=== PATIENT | male | born 1975 | race Hispanic/Latino ===

== ENCOUNTER 2022-03-28 16:40 | Inpatient (IN) | payer MEDICAID ==
[~2022-03-28] VITALS: Ht 167.6 cm; Wt 60.1 kg
[2022-03-28 17:22] LABS: BASOPHILS % (AUTO) 0.8 % (0.0-5.0); HEMATOCRIT 42.6 % (42-54); LYMPHOCYTES % (AUTO) 18.1 % (21.0-51.0); MEAN CORPUSCULAR HEMOGLOBIN 32.5 pg (27.0-33.0); MEAN CORPUSCULAR HGB CONC 35.4 g/dL (32.0-36.0); MEAN CORPUSCULAR VOLUME 91.8 fL (79-99); MONOCYTES % (AUTO) 9.9 % (3.0-13.0); NEUTROPHILS % (AUTO) 66.9 % (40.0-77.0); PLATELET COUNT (AUTO) 196 K/uL (130-400); RED BLOOD CELL COUNT(AUTO) 4.64 MIL/uL (4.50-6.20); WHITE BLOOD COUNT (AUTO) 9.3 K/uL (4.8-10.8)
[2022-03-28 17:43] LABS: CREATININE 0.8 mg/dL (0.5-1.5); POTASSIUM 3.6 mmol/L (3.5-5.1)
[2022-03-28 17:51] LABS: ALBUMIN 3.2 g/dL (3.5-5.0)
[2022-03-28] MEDS ORDERED: IOHEXOL 350 MG/ML 100ML INFUS..BTL IV ONE (18:04)
[2022-03-28] MEDS ORDERED: ACETAMINOPHEN 325 MG TAB PO PRN (21:00)
[2022-03-28] MEDS ORDERED: MORPHINE 2 MG SYG IV PRN (21:00)
[2022-03-28] MEDS: LACTATED RINGERS 1000ML 1,000 ML IV SCH (21:24)
[2022-03-28] MEDS: FAMOTIDINE 20MG VIAL IV SCH (21:25)
[2022-03-28 21:27] LABS: APPEARANCE,URINE CLEAR (CLEAR); BILIRUBIN,URINE NEGATIVE (NEGATIVE); COLOR,URINE COLORLESS (YELLOW); GLUCOSE, URINE (UA) NEGATIVE (NEGATIVE); KETONES,URINE NEGATIVE (NEGATIVE); LEUKOCYTE ESTERASE ,URINE NEGATIVE Leu/uL (NEGATIVE); NITRATE,URINE NEGATIVE (NEGATIVE); OCCULT BLOOD,URINE NEGATIVE (NEGATIVE); PH,URINE 6.5 (5.0-8.0); PROTEIN,URINE NEGATIVE (NEGATIVE); UROBILINOGEN,URINE 0.2 mg/dL (0.2-1.0)
[2022-03-28 23:40] VITALS: BP 125/76
[2022-03-29] MEDS ORDERED: NICOTINE 21 MG/ 24 HR PATCH TD SCH
[2022-03-29 04:26] VITALS: BP 125/76
[2022-03-29 05:29] LABS: EOSINOPHILS % (AUTO) 6.7 % (0.0-8.0); HEMATOCRIT 43.4 % (42-54); LYMPHOCYTES % (AUTO) 20.5 % (21.0-51.0); MEAN CORPUSCULAR HEMOGLOBIN 32.6 pg (27.0-33.0); MEAN CORPUSCULAR HGB CONC 35.5 g/dL (32.0-36.0); MEAN CORPUSCULAR VOLUME 91.8 fL (79-99); MONOCYTES % (AUTO) 12.5 % (3.0-13.0); PLATELET COUNT (AUTO) 196 K/uL (130-400); RED BLOOD CELL COUNT(AUTO) 4.73 MIL/uL (4.50-6.20); WHITE BLOOD COUNT (AUTO) 7.1 K/uL (4.8-10.8)
[2022-03-29 05:42] LABS: INR 0.97 (0.85-1.15); PROTHROMBIN TIME 10.6 SEC (9.6-11.6)
[2022-03-29 05:43] LABS: PARTIAL THROMBOPLASTIN TIME 27.6 SEC (26.3-35.5)
[2022-03-29 06:14] LABS: CREATININE 0.8 mg/dL (0.5-1.5); MAGNESIUM 1.9 mg/dL (1.80-2.40); PHOSPHORUS 3.7 mg/dL (2.5-4.9); POTASSIUM 3.8 mmol/L (3.5-5.1)
[2022-03-29 08:00] VITALS: BP 119/68
[2022-03-29] MEDS: NICOTINE 21 MG/ 24 HR PATCH TD SCH (09:23)
[2022-03-29] MEDS: FAMOTIDINE 20MG VIAL IV SCH ×2 (09:23→19:58)
[2022-03-29 11:00] VITALS: BP 128/67
[2022-03-29] MEDS: LACTATED RINGERS 1000ML 1,000 ML IV SCH (13:40)
[2022-03-29 16:00] VITALS: BP 126/90
[2022-03-29 20:00] VITALS: BP 117/71
[2022-03-30] VITALS: BP 128/72
[2022-03-30 04:00] VITALS: BP 107/79
[2022-03-30 05:13] LABS: HEMATOCRIT 43.4 % (42-54); MEAN CORPUSCULAR HEMOGLOBIN 32.2 pg (27.0-33.0); MEAN CORPUSCULAR VOLUME 91.9 fL (79-99); RED BLOOD CELL COUNT(AUTO) 4.72 MIL/uL (4.50-6.20); RED CELL DISTRIBUTION WIDTH 11.9 % (11.0-15.5); WHITE BLOOD COUNT (AUTO) 7.9 K/uL (4.8-10.8)
[2022-03-30 05:25] LABS: CREATININE 0.9 mg/dL (0.5-1.5); POTASSIUM 3.9 mmol/L (3.5-5.1)
[2022-03-30] MEDS: LACTATED RINGERS 1000ML 1,000 ML IV SCH (05:44)
[2022-03-30 08:00] VITALS: BP 125/74
[2022-03-30] MEDS: FAMOTIDINE 20MG VIAL IV SCH ×2 (10:50→20:21)
[2022-03-30] MEDS: NICOTINE 21 MG/ 24 HR PATCH TD SCH (10:50)
[2022-03-30 12:00] VITALS: BP 124/68
[2022-03-30 16:00] VITALS: BP 115/81
[2022-03-30 20:00] VITALS: BP 127/50
[2022-03-31] VITALS (26 sets, daily range): BP systolic 100–151; BP diastolic 60–82
[2022-03-31] MEDS: LACTATED RINGERS 1000ML 1,000 ML IV SCH ×2 (04:55→18:00)
[2022-03-31] MEDS ORDERED: ESMOLOL HCL 10 MG/ML 10 ML VIAL ONE (05:03)
[2022-03-31 05:05] LABS: HEMATOCRIT 42.3 % (42-54); MEAN CORPUSCULAR HEMOGLOBIN 32.3 pg (27.0-33.0); MEAN CORPUSCULAR HGB CONC 35.5 g/dL (32.0-36.0); RED BLOOD CELL COUNT(AUTO) 4.65 MIL/uL (4.50-6.20); RED CELL DISTRIBUTION WIDTH 11.8 % (11.0-15.5); WHITE BLOOD COUNT (AUTO) 7.1 K/uL (4.8-10.8)
[2022-03-31 05:20] LABS: POTASSIUM 4.8 mmol/L (3.5-5.1)
[2022-03-31] MEDS ORDERED: EPINEPHRINE 1 MG/ML 30ML VIAL IJ ONE (05:30)
[2022-03-31] MEDS ORDERED: MIDAZOLAM HCL 1 MG/ML 2ML VIAL ONE (06:56)
[2022-03-31] MEDS ORDERED: ROCURONIUM 10MG/1ML SYR 10 MG/ML ML ONE (06:57)
[2022-03-31] MEDS ORDERED: FENTANYL CITRATE PF 50 MCG/1 ML 5ML AMP IV ONE (06:57)
[2022-03-31] MEDS ORDERED: PROPOFOL 10 MG/ML 20ML VIAL IV ONE (06:57)
[2022-03-31] MEDS ORDERED: ONDANSETRON 4MG INJ ONE (07:12)
[2022-03-31] MEDS ORDERED: IPRATROPIUM/ALBUTEROL SULFATE 3 ML SOLUTION IH ONE ×2 (08:14→08:30)
[2022-03-31] MEDS ORDERED: MEPERIDINE-PF 25 MG/ML SYG ONE (08:39)
[2022-03-31] MEDS: ONDANSETRON 4MG INJ IV PRN (08:42)
[2022-03-31] MEDS: FAMOTIDINE 20MG VIAL IV SCH ×2 (11:54→21:06)
[2022-03-31] MEDS: NICOTINE 21 MG/ 24 HR PATCH TD SCH (11:55)
[2022-03-31] MEDS: MORPHINE 4 MG SYG IV PRN ×2 (11:55→17:57)
[2022-03-31] MEDS ORDERED: VIT K IV SCH ×3 (19:30)
[2022-03-31] MEDS ORDERED: PEDI NO 1 IV SCH ×3 (19:30)
[2022-03-31] MEDS ORDERED: [UNRECOGNIZED DRUG - OTHER] IV SCH ×3 (19:30)
[2022-03-31] MEDS ORDERED: MULTITRACE IV SCH ×3 (19:30)
[2022-03-31] MEDS ORDERED: MVI IV SCH ×3 (19:30)
[2022-04-01] VITALS (7 sets, daily range): BP systolic 102–144; BP diastolic 52–76
[2022-04-01] MEDS: LACTATED RINGERS 1000ML 1,000 ML IV SCH (03:15)
[2022-04-01 06:05] LABS: HEMATOCRIT 42.8 % (42-54); MEAN CORPUSCULAR HEMOGLOBIN 31.9 pg (27.0-33.0); MEAN CORPUSCULAR HGB CONC 34.3 g/dL (32.0-36.0); MEAN CORPUSCULAR VOLUME 92.8 fL (79-99); RED BLOOD CELL COUNT(AUTO) 4.61 MIL/uL (4.50-6.20); RED CELL DISTRIBUTION WIDTH 11.9 % (11.0-15.5); WHITE BLOOD COUNT (AUTO) 7.4 K/uL (4.8-10.8)
[2022-04-01 06:18] LABS: CREATININE 0.9 mg/dL (0.5-1.5); POTASSIUM 3.6 mmol/L (3.5-5.1)
[2022-04-01 06:49] LABS: MAGNESIUM 1.7 mg/dL (1.80-2.40); PHOSPHORUS 3.7 mg/dL (2.5-4.9); TOTAL PROTEIN, SERUM 6.7 g/dL (6.0-8.3)
[2022-04-01] MEDS ORDERED: MAGNESIUM 2GM PREMIX 50ML 50 ML IV SCH (08:30)
[2022-04-01] MEDS: NICOTINE 21 MG/ 24 HR PATCH TD SCH (09:01)
[2022-04-01] MEDS: FAMOTIDINE 20MG VIAL IV SCH ×2 (09:01→19:49)
[2022-04-01] MEDS ORDERED: M.V.I. IV [ADULT] 10 ML, MULTITRACE-4 ADULT 10ML VIAL 3 ML in CLINIMIX-E4.25%AA/D5+LYT2... IV SCH (10:00)
[2022-04-01] MEDS: MORPHINE 4 MG SYG IV PRN (10:43)
[2022-04-01] MEDS ORDERED: PHARMACY COMMUNICATION MISC SCH (12:00)
[2022-04-01] MEDS ORDERED: PHENOL 177 ML BOTTLE PO PRN (12:00)
[2022-04-01] MEDS: CEFTRIAXONE 1G VIAL IVP SCH (19:49)
[2022-04-02] VITALS (17 sets, daily range): BP systolic 97–142; BP diastolic 52–84
[2022-04-02] MEDS: MORPHINE 4 MG SYG IV PRN ×3 (00:07→17:41)
[2022-04-02] MEDS: LACTATED RINGERS 1000ML 1,000 ML IV SCH ×2 (01:00→10:59)
[2022-04-02] MEDS ORDERED: PROPOFOL 10 MG/ML 20ML VIAL IV ONE (06:49)
[2022-04-02] MEDS ORDERED: CEFAZOLIN SODIUM 1 GM VIAL ONE (07:23)
[2022-04-02] MEDS: FAMOTIDINE 20MG VIAL IV SCH ×2 (10:58→20:59)
[2022-04-02] MEDS: CEFTRIAXONE 1G VIAL IVP SCH ×2 (10:58→21:00)
[2022-04-02] MEDS: NICOTINE 21 MG/ 24 HR PATCH TD SCH (10:58)
[2022-04-02] MEDS: ONDANSETRON 4MG INJ IV PRN (11:47)
[2022-04-02] MEDS ORDERED: CLINIMIX-E4.25%AA/D5+LYT2000ML 2,000 ML IV SCH (12:30)
[2022-04-02] MEDS: KETOROLAC 15MG/ML VIAL (15MG/ML) IV PRN (21:00)
[2022-04-03] VITALS: BP 114/64
[2022-04-03 04:00] VITALS: BP 122/71
[2022-04-03 07:30] VITALS: BP 133/81
[2022-04-03] MEDS ORDERED: FAT EMULSIONS 20% 250ML 250 ML IV SCH (09:00)
[2022-04-03] MEDS: CEFTRIAXONE 1G VIAL IVP SCH ×2 (10:16→21:05)
[2022-04-03] MEDS: FAMOTIDINE 20MG VIAL IV SCH ×2 (10:16→21:05)
[2022-04-03] MEDS: NICOTINE 21 MG/ 24 HR PATCH TD SCH (10:16)
[2022-04-03] MEDS: KETOROLAC 15MG/ML VIAL (15MG/ML) IV PRN ×2 (10:30→21:16)
[2022-04-03 11:00] VITALS: BP 153/51
[2022-04-03 16:00] VITALS: BP 139/80
[2022-04-03 20:30] VITALS: BP 123/65
[2022-04-04] VITALS (7 sets, daily range): BP systolic 112–137; BP diastolic 62–81
[2022-04-04] MEDS: CEFTRIAXONE 1G VIAL IVP SCH ×2 (09:14→21:21)
[2022-04-04] MEDS: FAMOTIDINE 20MG VIAL IV SCH ×2 (09:14→21:21)
[2022-04-04] MEDS: NICOTINE 21 MG/ 24 HR PATCH TD SCH (09:14)
[2022-04-04] MEDS ORDERED: LIDOCAINE HCL 400MG/20ML VIAL ONE (12:23)
[2022-04-04] MEDS ORDERED: FAMO20TA8 PO (12:34)
[2022-04-04] MEDS ORDERED: FENTANYL CITRATE PF 50 MCG/1 ML 2ML VIAL ONE (12:57)
[2022-04-04] MEDS ORDERED: MIDAZOLAM HCL 1 MG/ML 2ML VIAL ONE (12:57)
[2022-04-04] MEDS ORDERED: HEPARIN 1,000 UNIT VIAL ONE (13:06)
[2022-04-04] MEDS ORDERED: OCTYL 2-CYANOACRYLATE 1 EACH TP ONE (13:08)
[2022-04-04] MEDS: KETOROLAC 15MG/ML VIAL (15MG/ML) IV PRN (21:25)
[2022-04-05] VITALS: BP 126/74
[2022-04-05] MEDS: LACTULOSE 20 GM/30 ML UDCUP PO SCH ×3 (01:00→18:28)
[2022-04-05 04:00] VITALS: BP 107/70
[2022-04-05 08:00] VITALS: BP 108/58
[2022-04-05] MEDS: FAMOTIDINE 20MG VIAL IV SCH ×2 (09:20→20:29)
[2022-04-05] MEDS: CEFTRIAXONE 1G VIAL IVP SCH ×2 (09:20→20:29)
[2022-04-05] MEDS: NICOTINE 21 MG/ 24 HR PATCH TD SCH (09:20)
[2022-04-05] MEDS: KETOROLAC 15MG/ML VIAL (15MG/ML) IV PRN ×2 (09:27→20:32)
[2022-04-05] MEDS ORDERED: FUROSEMIDE 40MG VIAL IV ONE (10:00)
[2022-04-05 11:21] VITALS: BP 145/77
[2022-04-05 16:00] VITALS: BP 160/70
[2022-04-05 21:49] VITALS: BP 105/75
[2022-04-06] VITALS: BP 130/80
[2022-04-06 04:29] VITALS: BP 110/73
[2022-04-06] MEDS: LACTULOSE 20 GM/30 ML UDCUP PO SCH (04:30)
[2022-04-06 08:00] VITALS: BP 112/68
[2022-04-06] MEDS: FAMOTIDINE 20MG VIAL IV SCH ×2 (08:30→21:10)
[2022-04-06] MEDS: KETOROLAC 15MG/ML VIAL (15MG/ML) IV PRN (08:30)
[2022-04-06] MEDS: CEFTRIAXONE 1G VIAL IVP SCH ×2 (08:30→21:10)
[2022-04-06] MEDS: NICOTINE 21 MG/ 24 HR PATCH TD SCH (08:30)
[2022-04-06 12:00] VITALS: BP 105/76
[2022-04-06] MEDS ORDERED: ONDA-104 PO (14:10)
[2022-04-06 16:00] VITALS: BP 106/83
[2022-04-06 20:59] VITALS: BP 107/69
[2022-04-07 00:19] VITALS: BP 97/58
[2022-04-07 03:59] VITALS: BP 110/56
[2022-04-07] MEDS: KETOROLAC 15MG/ML VIAL (15MG/ML) IV PRN (05:52)
[2022-04-07 08:00] VITALS: BP 94/70
[2022-04-07] MEDS: CEFTRIAXONE 1G VIAL IVP SCH (10:05)
[2022-04-07] MEDS: FAMOTIDINE 20MG VIAL IV SCH (10:06)
[2022-04-07] MEDS: NICOTINE 21 MG/ 24 HR PATCH TD SCH (10:06)
[2022-04-07 12:00] VITALS: BP 108/62
[2022-04-07 16:00] VITALS: BP 106/63
== END 2022-04-07 19:05 | disposition home or self-care (01) | DRG 110 ==
LOC: EDH 16:40 → EDHIP 16:41 → 3BH 23:39
PROVIDERS: ADMIT Hospitalist; ATTEND Hospitalist
PROC: 0CBS8ZX Excision of Larynx, Via Natural or Artificial Opening Endoscopic, Diagnostic (ICD-10-PCS; 2022-03-31)
PROC: 0DH63UZ Insertion of Feeding Device into Stomach, Percutaneous Approach (ICD-10-PCS; 2022-04-02)
PROC: 02H633Z Insertion of Infusion Device into Right Atrium, Percutaneous Approach (ICD-10-PCS; principal; 2022-04-04)
PROC: B548ZZA Ultrasonography of Superior Vena Cava, Guidance (ICD-10-PCS; 2022-04-04)
DX: C32.9 Malignant neoplasm of larynx, unspecified (principal); C15.9 Malignant neoplasm of esophagus, unspecified; E43 Unspecified severe protein-calorie malnutrition; C85.90 Non-Hodgkin lymphoma, unspecified, unspecified site; R13.12 Dysphagia, oropharyngeal phase; F17.210 Nicotine dependence, cigarettes, uncomplicated; E46 Unspecified protein-calorie malnutrition; F10.10 Alcohol abuse, uncomplicated; F12.10 Cannabis abuse, uncomplicated; Z20.822 Contact with and (suspected) exposure to COVID-19; J44.9 Chronic obstructive pulmonary disease, unspecified; F20.9 Schizophrenia, unspecified; Z93.1 Gastrostomy status; Z68.21 Body mass index [BMI] 21.0-21.9, adult
CPT/HCPCS: 36415; 36561; 43246; 70491; 71045; 71250; 74230; 77001; 80048; 80053; 81003; 82040; 82306; 82607; 83540; 83735; 84100; 85025; 85027; 85610; 85730; 86850; 86870; 86900; 86901; 86922; 87040; 87635; 92610; 92611; 93005; 94640; 99156; 99157; A4606; G0378; J0171; J0690; J0696; J1644; J1885; J1940; J2175; J2250; J2270; J2405; J2704; J3010; J3475; J3490; J7030; J7120; Q9967